=== PATIENT | male | born 1965 | race Caucasian/White ===

== ENCOUNTER 2017-07-20 08:53 | Emergency (ER) | payer SELFPAY ==
[2017-07-20] MEDS ORDERED: TRAZ-156 PO (09:04)
[2017-07-20] MEDS ORDERED: ESCI10TA8 PO (09:04)
[2017-07-20] MEDS ORDERED: OLAN15TA23 PO (09:04)
--- NOTE | 2017-07-20 09:24 | ER Report ---
History and Physical Time Seen By MD: 09:23 Hx. of Stated Complaint: N/V FOR 1 WEEK HPI/ROS CHIEF COMPLAINT: nausea/vomiting HISTORY OF PRESENT ILLNESS: This is a 51 year old male. He has a cough and cold symptoms for about 1 week. About 4-5 days ago, started having nausea as well. Has some abdominal discomfort. No fevers noted. He has mild cough productive of clear sputum. Bowel still working, without diarrhea, but less frequent. Having diffuse abdominal discomfort, but no yolie pain. He has not urinated as much and feels dehydrated. Allergies: Coded Allergies: codeine (Verified Adverse Reaction, Unknown, 07/20/17) Home Meds Active Scripts Ondansetron (ZOFRAN ODT) 4 Mg Tab.rapdis, 4 MG PO Q6H Y for NAUSEA/VOMITING, # 20 TAB.LISSETTE 0 Refills Prov:PAUL MARTINES MD 07/20/17 Reported Medications Olanzapine (OLANZAPINE) 15 Mg Tablet, 15 MG PO QDAY 07/20/17 Escitalopram Oxalate (ESCITALOPRAM OXALATE) 10 Mg Tablet, 10 MG PO QDAY, TAB 07/20/17 Trazodone Hcl (TRAZODONE HCL) 50 Mg Tablet, 50 MG PO QHS 07/20/17 Reviewed Nurses Notes: Yes Hx Substance Use Disorder: No Hx Alcohol Use: Yes (RARE) Constitutional Vital Sign - Last 24 Hours 07/20/17 07/20/17 07/20/17 07/20/17 08:57 08:58 09:00 09:15 Temp 97.7 Pulse 59 Resp 20 B/P (MAP) 139/96 139/96 (110) 138/89 (105) 120/77 (91) Pulse Ox 92 O2 Delivery Room Air 07/20/17 07/20/17 07/20/17 07/20/17 09:23 09:30 09:45 09:53 Pulse 62 61 B/P (MAP) 122/86 (98) 130/91 (104) Pulse Ox 92 95 07/20/17 07/20/17 07/20/17 07/20/17 10:00 10:30 10:35 10:45 Pulse 57 B/P (MAP) 112/83 (93) 122/86 (98) 107/66 (80) Pulse Ox 93 07/20/17 07/20/17 07/20/17 07/20/17 11:00 11:05 11:15 11:30 Pulse 54 B/P (MAP) 111/67 (82) 130/84 (99) 127/90 (102) Pulse Ox 94 07/20/17 11:35 Pulse 56 B/P (MAP) 139/95 (110) Pulse Ox 96 Intake and Output 07/20/17 07/20/17 07/21/17 15:00 23:00 07:00 Intake Total 1000 ml Balance 1000 ml Physical Exam General Appearance: The patient is alert. No acute distress. Eyes: Pupils are equal, round. No pallor, injection or icterus. ENT: Mucous membranes are dry, otherwise normal oral mucosa. Posterior oropharynx is normal. Normal nasal mucosa. Normal tympanic membranes and canals. Neck: Supple and non tender. No lymphadenopathy. Respiratory: Lungs are clear to auscultation. Cardiovascular: Regular rate and rhythm. No murmurs, gallops or rubs. Normal capillary refill. Gastrointestinal: Abdomen is soft and non tender. Nondistended. Normal active bowel sounds. No CVA tenderness with percussion. Neurological: Alert and oriented x3. Skin: Warm and dry. Musculoskeletal: No tenderness in palpation of the cervical, thoracic and lumbar spine. DIFFERENTIAL DIAGNOSIS: After history and physical exam, differential diagnosis was considered for nausea and vomiting, with cough and signs of upper respiratory infection, likely viral syndrome. Medical Decision Making Data Points Result Diagram: 07/20/17 0904 07/20/17 0904 Laboratory Hematology Test 07/20/17 08:56 07/20/17 09:04 Urine Color Yellow Urine Clarity Clear Urine pH 7.0 pH (4.8-9.5) Urine Specific [place] 1.015 Urine Protein Negative mg/dL (NEGATIVE) Urine Glucose (UA) Negative mg/dL (NEGATIVE) Urine Ketones Negative mg/dL (NEGATIVE) Urine Blood Negative (NEGATIVE) Urine Nitrite Negative (NEGATIVE) Urine Bilirubin Negative (NEGATIVE) Urine Urobilinogen 2.0 mg/dL (0.2-1.9) Urine Leukocyte Esterase Negative (NEGATIVE) Urine RBC None /HPF (0-2/HPF) Urine WBC None /HPF (0-5/HPF) Urine Squamous Epithelial Cells None /LPF (</=FEW) Urine Bacteria Negative /HPF (NONE-FEW) Urine Mucus Few /HPF (NONE-FEW) Red Blood Count 6.22 M/uL (4.00-5.60) Mean Corpuscular Volume 81.5 fL (80.0-96.0) Mean Corpuscular Hemoglobin 29.3 pg (26.0-33.0) Mean Corpuscular Hemoglobin Concent 35.9 g/dL (32.0-36.0) Red Cell Distribution Width 13.2 % (11.5-14.5) Mean Platelet Volume 7.3 fL (7.2-11.1) Neutrophils (%) (Auto) 47.9 % (39.4-72.5) Lymphocytes (%) (Auto) 43.3 % (17.6-49.6) Monocytes (%) (Auto) 8.0 % (4.1-12.4) Eosinophils (%) (Auto) 0.2 % (0.4-6.7) Basophils (%) (Auto) 0.6 % (0.3-1.4) Nucleated RBC Relative Count (auto) 0.3 /100WBC Neutrophils # (Auto) 2.3 K/uL (2.0-7.4) Lymphocytes # (Auto) 2.0 K/uL (1.3-3.6) Monocytes # (Auto) 0.4 K/uL (0.3-1.0) Eosinophils # (Auto) 0.0 K/uL (0.0-0.5) Basophils # (Auto) 0.0 K/uL (0.0-0.1) Nucleated RBC Absolute Count (auto) 0.01 K/uL Sodium Level 140 mmol/L (137-145) Potassium Level 3.9 mmol/L (3.5-5.0) Chloride Level 103 mmol/L (98-107) Carbon Dioxide Level 20 mmol/L (22-30) Blood Urea Nitrogen 10 mg/dl (9-21) Creatinine 0.80 mg/dl (0.66-1.25) Glomerular Filtration Rate Calc > 60.0 Random Glucose 133 mg/dl (75-110) Calcium Level 9.4 mg/dl (8.4-10.2) Total Bilirubin 1.7 mg/dl (0.2-1.3) Aspartate Amino Transf (AST/SGOT) 41 U/L (0-35) Alanine Aminotransferase (ALT/SGPT) 61 U/L (0-56) Alkaline Phosphatase 76 U/L (0-126) Total Protein 7.9 gm/dl (6.3-8.2) Albumin 4.5 g/dl (3.5-5.0) Amylase Level 59 U/L (0-110) Lipase 109 U/L (23-300) Chemistry Test 07/20/17 08:56 07/20/17 09:04 Urine Color Yellow Urine Clarity Clear Urine pH 7.0 pH (4.8-9.5) Urine Specific [place] 1.015 Urine Protein Negative mg/dL (NEGATIVE) Urine Glucose (UA) Negative mg/dL (NEGATIVE) Urine Ketones Negative mg/dL (NEGATIVE) Urine Blood Negative (NEGATIVE) Urine Nitrite Negative (NEGATIVE) Urine Bilirubin Negative (NEGATIVE) Urine Urobilinogen 2.0 mg/dL (0.2-1.9) Urine Leukocyte Esterase Negative (NEGATIVE) Urine RBC None /HPF (0-2/HPF) Urine WBC None /HPF (0-5/HPF) Urine Squamous Epithelial Cells None /LPF (</=FEW) Urine Bacteria Negative /HPF (NONE-FEW) Urine Mucus Few /HPF (NONE-FEW) White Blood Count 4.7 k/uL (4.5-11.0) Red Blood Count 6.22 M/uL (4.00-5.60) Hemoglobin 18.2 g/dL (14.0-18.0) Hematocrit 50.7 % (42.0-52.0) Mean Corpuscular Volume 81.5 fL (80.0-96.0) Mean Corpuscular Hemoglobin 29.3 pg (26.0-33.0) Mean Corpuscular Hemoglobin Concent 35.9 g/dL (32.0-36.0) Red Cell Distribution Width 13.2 % (11.5-14.5) Platelet Count 207 K/uL (150-450) Mean Platelet Volume 7.3 fL (7.2-11.1) Neutrophils (%) (Auto) 47.9 % (39.4-72.5) Lymphocytes (%) (Auto) 43.3 % (17.6-49.6) Monocytes (%) (Auto) 8.0 % (4.1-12.4) Eosinophils (%) (Auto) 0.2 % (0.4-6.7) Basophils (%) (Auto) 0.6 % (0.3-1.4) Nucleated RBC Relative Count (auto) 0.3 /100WBC Neutrophils # (Auto) 2.3 K/uL (2.0-7.4) Lymphocytes # (Auto) 2.0 K/uL (1.3-3.6) Monocytes # (Auto) 0.4 K/uL (0.3-1.0) Eosinophils # (Auto) 0.0 K/uL (0.0-0.5) Basophils # (Auto) 0.0 K/uL (0.0-0.1) Nucleated RBC Absolute Count (auto) 0.01 K/uL Glomerular Filtration Rate Calc > 60.0 Calcium Level 9.4 mg/dl (8.4-10.2) Total Bilirubin 1.7 mg/dl (0.2-1.3) Aspartate Amino Transf (AST/SGOT) 41 U/L (0-35) Alanine Aminotransferase (ALT/SGPT) 61 U/L (0-56) Alkaline Phosphatase 76 U/L (0-126) Total Protein 7.9 gm/dl (6.3-8.2) Albumin 4.5 g/dl (3.5-5.0) Amylase Level 59 U/L (0-110) Lipase 109 U/L (23-300) Urinalysis Test 07/20/17 08:56 Urine Color Yellow Urine Clarity Clear Urine pH 7.0 pH (4.8-9.5) Urine Specific [place] 1.015 Urine Protein Negative mg/dL (NEGATIVE) Urine Glucose (UA) Negative mg/dL (NEGATIVE) Urine Ketones Negative mg/dL (NEGATIVE) Urine Blood Negative (NEGATIVE) Urine Nitrite Negative (NEGATIVE) Urine Bilirubin Negative (NEGATIVE) Urine Urobilinogen 2.0 mg/dL (0.2-1.9) Urine Leukocyte Esterase Negative (NEGATIVE) Urine RBC None /HPF (0-2/HPF) Urine WBC None /HPF (0-5/HPF) Urine Squamous Epithelial Cells None /LPF (</=FEW) Urine Bacteria Negative /HPF (NONE-FEW) Urine Mucus Few /HPF (NONE-FEW) EKG/Imaging Imaging Technique: ACUTE ABDOMEN SERIES 3 VIEW HISTORY: ABD PAIN COMPARISON: None available Findings: The lungs are clear. No pleural effusion or pneumothorax. The cardiomediastinal silhouette is normal. The bowel gas pattern is nonobstructive. No dilated loops of bowel. Impression: 1. No acute intra-abdominal process. Report Dictated By: Dandre Leigh DO at 07/20/2017 10:47 AM ED Course/Re-evaluation Clinical Indication for ER IV: Hydration, IV Access ED Course Labs are unremarkable. Imaging with no signs of obstruction and nonspecific gas pattern. Liter of normal saline given. Zofran improved. Decision to Disposition Date: Jul 20, 2017 Decision to Disposition Time: 11:38 Depart Departure Latest Vital Signs Vital Signs Date Time Temp Pulse Resp B/P (MAP) Pulse Ox O2 Delivery O2 Flow Rate FiO2 07/20/17 11:35 56 139/95 (110) 96 07/20/17 08:57 97.7 20 Room Air Impression: Primary Impression: Viral syndrome Condition: Improved Disposition: HOME OR SELF-CARE New Scripts Ondansetron (ZOFRAN ODT) 4 Mg Tab.rapdis 4 MG PO Q6H Y for NAUSEA/VOMITING, #20 TAB.LISSETTE 0 Refills Prov: PAUL MARTINES MD 07/20/17 Patient Instructions: Viral Syndrome (ED) Additional Instructions: Rest and increase fluid intake for the next few days. Take Zofran 4mg, one every 4 hours as needed for nausea. Take Tylenol or Ibuprofen as needed for pain or fever. PAUL MARTINES MD Jul 20, 2017 09:24
[2017-07-20] MEDS ORDERED: NS(*) 0.9% 1000 ML BAG 1,000 ML IV ONE (09:59)
[2017-07-20] MEDS ORDERED: ONDANSETRON 4 MG/2 ML VIAL IVP ONE (10:00)
[2017-07-20 10:06] LABS: PLATELET COUNT, AUTOMATED 207 K/uL (150-450)
--- NOTE | 2017-07-20 10:52 | RADIOLOGY IMAGING REPORT ---
FACILITY: [facility] [place] PATIENT NAME: Bianca Coats : 1965 MR: [id number] V: [id number] EXAM DATE: ORDERING PHYSICIAN: PAUL MARTINES TECHNOLOGIST: Location: [facility] Patient: Bianca Coats : 1965 Visit/Account:[id number] Date of Sevice: 07/20/2017 Technique: ACUTE ABDOMEN SERIES 3 VIEW HISTORY: ABD PAIN COMPARISON: None available Findings: The lungs are clear. No pleural effusion or pneumothorax. The cardiomediastinal silhouett e is normal. The bowel gas pattern is nonobstructive. No dilated loops of bowel. Impression: 1. No acute intra-abdominal process. Report Dictated By: Dandre Leigh DO at 07/20/2017 10:47 AM Report E-Signed By: Dandre Leigh DO at 07/20/2017 10:48 AM [id number]
[2017-07-20 11:35] VITALS: BP 139/95
[2017-07-20] MEDS ORDERED: ONDA4TAB PO (11:40)
== END 2017-07-20 11:43 | disposition home or self-care (01) ==
LOC: ER 09:09
DX: B34.9 Viral infection, unspecified (principal)
CPT/HCPCS: 74022; 81001; 82150; 83690; 85025; 96361; 96374; 99284; J2405; J7030; 82040; 82247; 82310; 82374; 82435; 82565; 82947; 84075; 84132; 84155; 84295; 84450; 84460; 84520